=== PATIENT | female | born 1985 | race African-American/Black ===

== ENCOUNTER 2019-03-04 18:19 | Emergency (ER) | payer MEDICAID ==
[~2019-03-04] VITALS: Ht 175.3 cm; Wt 77.1 kg
[2019-03-04 18:48] LABS: Basophils # (auto) 0 uL; Basophils % (auto) 0.5 % (0.0-2.0); Eosinophils # (auto) 0.1 uL; Eosinophils % (auto) 1.8 % (0.0-7.0); Hematocrit 42.7 % (36.0-46.0); Hemoglobin 14.4 g/dL (12.2-16.2); Lymphocytes # (auto) 3.3 uL; Lymphocytes % (auto) 43.6 % (10.0-50.0); Mean Corpuscular Hgb Conc. 33.6 g/dL (32.0-36.0); Mean Corpuscular Volume 95.4 fL (80.0-100.0); Monocytes # (auto) 0.4 uL; Monocytes % (auto) 5.5 % (0.0-12.0); Neutrophils # (auto) 3.7 uL; Neutrophils % (auto) 48.6 % (37.0-80.0); Nucleated Red Blood Cells % 0.2 %; Platelet Count (auto) 244 10^3/uL (140-450); Red Blood Cells 4.48 10^6/uL (4.0-5.20); Red Cell Distribution Width 13.2 % (11.8-14.3); White Blood Cell 7.7 10^3/uL (4.4-10.8)
[2019-03-04 18:59] LABS: Albumin 3.5 g/dL (3.4-5.0); BUN/Creatinine Ratio 14.5; Calcium 8.7 mg/dL (8.5-10.1); Potassium 3.6 mmol/L (3.5-5.1)
[2019-03-04 19:02] LABS: Bilirubin, Total 0.7 mg/dL (0.2-1.0); Total Protein 7.8 g/dL (6.4-8.2)
[2019-03-04] MEDS ORDERED: LACTULOSE 20Gm/30ML SOLN PO ONE (21:30)
[2019-03-04] MEDS ORDERED: BACLOFEN 10 MG TAB PO ONE (21:30)
[2019-03-04 22:12] VITALS: BP 149/89
== END 2019-03-04 22:12 | disposition home or self-care (01) ==
LOC: ER 18:19
DX: K59.00 Constipation, unspecified (principal); R59.1 Generalized enlarged lymph nodes
CPT/HCPCS: 36415; 74176; 80053; 81002; 81025; 85025

== ENCOUNTER 2022-07-11 18:12 | Emergency (ER) | payer MEDICAID ==
[~2022-07-11] VITALS: Ht 175.3 cm; Wt 78.8 kg
[2022-07-11 20:55] LABS: Basophils # (auto) 0.1 10 ^3/uL (0-0.2); Eosinophils # (auto) 0.2 10 ^3/uL (0-0.8); Eosinophils % (auto) 2.3 % (0.0-7.0); Hematocrit 36.4 % (36.0-46.0); Hemoglobin 12.2 g/dL (12.2-16.2); Lymphocytes # (auto) 2.5 10 ^3/uL (0.4-5.4); Lymphocytes % (auto) 33.8 % (10.0-50.0); Mean Corpuscular Hemoglobin 29.9 pg (28.0-32.0); Mean Corpuscular Hgb Conc. 33.4 g/dL (32.0-36.0); Mean Corpuscular Volume 89.4 fL (80.0-100.0); Monocytes # (auto) 0.7 10 ^3/uL (0-1.3); Monocytes % (auto) 8.8 % (0.0-12.0); Neutrophils % (auto) 54.1 % (37.0-80.0); Nucleated Red Blood Cells % 0.1 %; Red Blood Cells 4.07 10^6/uL (4.0-5.20); Red Cell Distribution Width 14.1 % (11.8-14.3); White Blood Cell 7.4 10^3/uL (4.4-10.8)
[2022-07-11 21:05] LABS: Albumin 3.8 g/dL (3.4-5.0); Calcium 9.4 mg/dL (8.5-10.1)
[2022-07-11 21:22] LABS: BUN/Creatinine Ratio 20.8 (10.0-20.0); Potassium 4.3 mmol/L (3.5-5.1)
[2022-07-11 21:23] LABS: Bilirubin, Total 0.4 mg/dL (0.2-1.0); Total Protein 8.2 g/dL (6.4-8.2)
[2022-07-11] MEDS ORDERED: HYDROcodone-ACET 10/325MG TAB PO ONE (23:30)
[2022-07-11 23:47] VITALS: BP 117/80
[2022-07-12] MEDS ORDERED: TRAM50TA2 PO (00:03)
[2022-07-12] MEDS ORDERED: HYDR1TAB97 PO (00:09)
[2022-07-12] MEDS ORDERED: IBUP800T27 PO (16:57)
== END 2022-07-12 00:23 | disposition home or self-care (01) ==
LOC: ER 18:12
DX: D25.9 Leiomyoma of uterus, unspecified (principal); R10.2 Pelvic and perineal pain; Z98.51 Tubal ligation status
CPT/HCPCS: 36415; 74176; 76856; 80053; 84702; 85025

== ENCOUNTER 2023-04-17 05:41 | Emergency (ER) | payer MEDICAID ==
[~2023-04-17] VITALS: Ht 175.3 cm; Wt 72.2 kg
[~2023-04-17 05:41] MED LIST: HYDR1TAB97 PO; IBUP-1456 PO
[2023-04-17] MEDS ORDERED: SUMAtriptan SUCCINATE 6 MG/0.5 ML VL SC ONE (07:00)
[2023-04-17 07:26] VITALS: BP 125/79; PULSE 83; RESP 16; TEMP 98.1; O2SAT 100
[2023-04-17] MEDS ORDERED: SUMA50TA2 PO (07:58)
== END 2023-04-17 08:06 | disposition home or self-care (01) ==
LOC: ER 05:41
DX: G43.909 Migraine, unspecified, not intractable, without status migrainosus (principal); F17.210 Nicotine dependence, cigarettes, uncomplicated; Z98.890 Other specified postprocedural states; Z79.899 Other long term (current) drug therapy
CPT/HCPCS: 70450; 96372; 99285; J3030